=== PATIENT | male | born 2000 | race Caucasian/White ===

== ENCOUNTER 2023-02-26 23:17 | Emergency (ER) | payer MEDICAID ==
[~2023-02-26] VITALS: Ht 180.3 cm; Wt 88.0 kg
[2023-02-26 23:22] VITALS: BP 145/76; PULSE 87; RESP 18; TEMP 99.2; O2SAT 100
[2023-02-27] MEDS ORDERED: METHYLPREDNISOLONE SOD SUCC 125MG/2ML (ACT-O-VIAL) IM STA (01:50)
[2023-02-27] MEDS ORDERED: KETOROLAC 60MG/2ML VIAL IM STA (01:50)
[2023-02-27] MEDS ORDERED: NAPR-681 PO (02:15)
[2023-02-27] MEDS ORDERED: TRAM50TA3 MT (02:15)
== END 2023-02-27 02:33 | disposition home or self-care (01) ==
LOC: ER 23:17
DX: M25.511 Pain in right shoulder (principal)
CPT/HCPCS: 99284; 73030; 96372; J1885; J2930